=== PATIENT | male | born 1990 | race African-American/Black ===

== ENCOUNTER → 2018-09-05 | Outpatient (CLI) | payer OTHER | LOC: COL.CARD 11:49 | DX: I10 Essential (primary) hypertension (principal) ==

== ENCOUNTER → 2019-01-16 | Outpatient (CLI) | payer OTHER | LOC: COL.RAD 14:51 | DX: N43.3 Hydrocele, unspecified (principal) ==

== ENCOUNTER → 2019-02-06 | Outpatient (CLI) | payer OTHER | LOC: COL.RAD 12:20 | DX: M51.36 Other intervertebral disc degeneration, lumbar region (principal); M46.86 Other specified inflammatory spondylopathies, lumbar region; G89.29 Other chronic pain ==